=== PATIENT | female | born 1975 | race African-American/Black ===

== ENCOUNTER 2021-12-21 09:58 | Inpatient (IN) | payer OTHER, SELFPAY ==
[2021-12-21] VITALS (10 sets, daily range): BP systolic 125–150; BP diastolic 74–106; PULSE 93–111; RESP 16–20; TEMP 36.3–36.9; O2SAT 96–100; BMI 28.1
--- NOTE | ~2021-12-21 | XR_ITS ---
EXAMINATION: XR chest 2V DATE: 12/21/2021 10:32 INDICATION: Central chest pain. TECHNIQUE: Frontal and lateral views of the chest were obtained. COMPARISON: Chest 2 views 05/26/2011 FINDINGS: The chest demonstrates clear lungs without pneumonia, pleural effusion, or pneumothorax. Th e heart size is normal. IMPRESSION: 1. No acute cardiopulmonary disease. Reviewed, dictated and finalized at location A. R OPERATOR HOT METAL
--- NOTE | ~2021-12-21 | CT_ITS ---
EXAMINATION: CT soft tissue neck chest wo DATE: 12/21/2021 17:10 INDICATION: Dysphagia. Chest discomfort. Weight loss. TECHNIQUE: Computed tomography (CT) of the neck and chest was performed without intravenous contrast. Automated exposure control and iterative reconstruction technique were employed. The dose-length pro duct was 861.82 mGy-cm. COMPARISON: None FINDINGS: CT NECK: The pharynx and larynx are unremarkable. There are no pathologically enlarged lymph nodes. T here is mild cervical spondylosis. The paranasal sinuses are clear. The mastoid air cells are normal. CT CHEST: The lungs demonstrate mild dependent atelectasis. No pleural effusion. The heart size is no rmal. No pericardial effusion. There is mild thoracic spondylosis. IMPRESSION: 1. No etiology for the patient's symptoms. Reviewed, dictated and finalized at location A. DIATION CONSULTANT
--- NOTE | ~2021-12-21 | US_ITS ---
US renal BI 12/21/2021 14:41 Procedure: Realtime transabdominal ultrasound of the kidneys and bladder. Indication: Acute renal insufficiency Comparison: No prior studies for comparison. Findings: Renal echotexture is normal bilaterally without hydronephrosis, contour deforming mass or r enal calculus. The right kidney measures 10 cm and left kidney measures 9.9 cm. There are bilateral r enal cysts measuring up to 1.2 cm on the right and 1.1 cm on the left. Bladder within normal limits. Impression: 1: Bilateral renal cysts. Reviewed, dictated and finalized at location A. ATIENT PHARMACY MANAGER Impression: 1: Bilateral renal cysts.
--- NOTE | 2021-12-21 10:15 | ECG_ITS ---
Measurements Intervals [place] Rate: 103 P: 82 NH: 187 QRS: -47 QRSD: 84 T: 73 QT: 332 QTc: 436 Interpretive Statements SINUS TACHYCARDIA POSSIBLE LEFT ATRIAL ENLARGEMENT [-0.1mV P WAVE IN V1/V2] PATTERN CONSISTENT WITH PULMONARY DISEASE LEFT ANTERIOR FASCICULAR BLOCK [QRS AXIS <= -45, QR IN I, RS IN II] CANNOT RULE OUT SEPTAL MYOCARDIAL INFARCTION , OF INDETERMINATE AGE [40+ ms Q WAVE IN V1/V2] ABNORMAL ECG NO PREVIOUS ECG AVAILABLE FOR COMPARISON Electronically Signed On 12-21-2021 11:07:16 COKE CRANE OPERATOR by Dung Youssef M.D.
[2021-12-21] MEDS: ASPIRIN 81 MG CHEWABLE TABLET 324 MG PO (10:19)
[2021-12-21 10:29] LABS: Basophils Percent Auto 0.4 % (0.2-1.2); Eosinophils Percent Auto 0.2 % (0-4.4); Hematocrit 45.3 % (37.0-47.0); Hemoglobin 14.4 g/dL (12.0-15.0); Immature Granulocyte Absolute 0.02 K/mm3 (0.00-0.031); Immature Granulocyte Percent A 0.2 % (0-0.5); Lymphocytes Absolute Auto 1.14 K/mm3 (0.9-3.2); Lymphocytes Percent Auto 13.8 % (18.3-44.2); Mean Corpuscular HGB Conc 31.8 g/dl (32-36); Mean Corpuscular Hemoglobin 30.3 pg (26-34); Mean Corpuscular Volume 95.4 fl (80-100); Mean Platelet Volume 10.3 fl (7.4-10.4); Monocytes Absolute Auto 0.5 K/mm3 (0.1-0.6); Monocytes Percent Auto 6.5 % (2.6-8.5); Neutrophils Absolute Auto 6.5 K/mm3 (1.3-6.7); Neutrophils Percent Auto 78.9 % (45.5-73.1); Platelet Count Result 317 k/mm3 (150-375); Red Blood Count 4.75 M/mm3 (4.2-5.4); Red Cell Distribution Width 13.5 % (11.5-14.5); White Blood Count 8.3 K/mm3 (4.5-10.0)
[2021-12-21 10:38] LABS: Prothrombin Time 13.1 Seconds (11.1-14.7)
[2021-12-21 10:39] LABS: Partial Thromboplastin Time 26.9 SECONDS (22.3-36.8)
[2021-12-21 10:46] LABS: Albumin Level 4.9 g/dL (3.5-5.1); Alkaline Phosphatase 139 U/L (38-126); Aspartate Amino Transferase 33 U/L (14-36); Bilirubin,Total 0.9 mg/dL (0.2-1.3); Blood Urea Nitrogen 30 mg/dL (7-17); Calcium 10.4 mg/dL (8.4-10.2); Carbon Dioxide 25 mmol/L (22-30); Chloride 88 mmol/L (98-107); Estimated CRCL calculation 49 ml/min; Estimated Glomerular Filt Rate 49
--- NOTE | 2021-12-21 10:49 | ED.GENADULT ---
HPI - General Adult General Chief complaint: Unspecified Stated complaint: multiple complaints, [id number] Time Seen by Provider: 12/21/21 10:33 Source: patient Mode of arrival: ambulatory Limitations: no limitations History of Present Illness HPI narrative: Patient is 46 years old -[place] female presents to the ED with mid chest discomfort, extremely tired, intermittent vomiting, numbness of the chest on the arms, dry mouth decrease p.o. intake sour taste in the mouth when she tried to eat, lost at least 15 pounds since the beginning of the symptoms 1 month ago. Initially the symptom was intermittent, over the last 3 weeks has been constant. Patient works as a teacher, history of hypertension and depression. Patient denies any fever, chills, shortness of breath, abdominal pain, back pain. Patient does not smoke or drink or uses drugs. Related Data Allergies Allergy/AdvReac Type Severity Reaction Status Date / Time No Known Allergies Allergy Mild Unverified 09/14/08 18:38 Review of Systems Review of Systems: CONSTITUTIONAL: Denies fever, chills, or sweats. EYES: Denies visual changes, redness, or discharge. ENT: Denies rhinorrhea, congestion, sore throat, or otalgia. CARDIOVASCULAR: Denies chest pain, palpitations, or edema. RESPIRATORY: Denies cough or dyspnea. GASTROINTESTINAL: Denies abdominal pain, nausea, vomiting, or diarrhea. GENITOURINARY: Denies dysuria or hematuria. SKIN: Denies rash or itching. MUSCULOSKELETAL: Denies back pain, joint pain, or myalgia. NEUROLOGIC: Denies headache, numbness, or weakness. PSYCHIATRIC: Denies anxiety or depression. Exam Narrative: General appearance: Well-developed, well-nourished Skin: Normal color Head: Normocephalic, nontraumatic Eyes: Clear conjunctiva ENT: Oropharynx normal, ears normal, nose normal Neck: Supple, nontender Chest and respiratory: Airway patent, no respiratory distress, no accessory muscle use Heart: Regular rate/rhythm Abdomen: Soft, nontender, no organomegaly, quiet bowel sounds Vascular: Normal peripheral pulses, normal capillary refill. Musculoskeletal: Normal range of motion, nontender back Neurologic: Alert and oriented ?3, BLEACH RANGE OPERATOR is normal as tested, no gross motor deficit Course Course Emergency Course: Stable Vital Signs Vital signs: Vital Signs Temperature 36.9 C 12/21/21 10:09 Pulse Rate 108 H 12/21/21 10:09 Respiratory Rate 18 12/21/21 10:09 Blood Pressure 147/106 H 12/21/21 10:09 Pulse Oximetry 98 12/21/21 10:09 Temperature 36.9 C 12/21/21 10:09 Pulse Rate 109 H 12/21/21 10:20 Respiratory Rate 18 12/21/21 10:09 Blood Pressure 147/106 H 12/21/21 10:09 Pulse Oximetry 98 12/21/21 10:09 Medical Decision Making MDM Narrative Medical decision making narrative: Anxiety/depression is my concern. Differential Diagnosis Differential Diagnosis: Depression, anxiety-like symptoms, chest wall pain, pleurisy, Vital Signs Vital Signs: Vital Signs Temperature 36.9 C 12/21/21 10:09 Pulse Rate 108 H 12/21/21 10:09 Respiratory Rate 18 12/21/21 10:09 Blood Pressure 147/106 H 12/21/21 10:09 Pulse Oximetry 98 12/21/21 10:09 Temperature 36.9 C 12/21/21 10:09 Pulse Rate 109 H 12/21/21 10:20 Respiratory Rate 18 12/21/21 10:09 Blood Pressure 147/106 H 12/21/21 10:09 Pulse Oximetry 98 12/21/21 10:09 Lab Data Result diagrams: 12/21/21 10:23 12/21/21 10:23 Labs: Lab Results 12/21/21 12/21/21 12/21/21 Range/Units 10:23 10:23 10:23 WBC 8.3 (4.5-10.0) K/mm3 RBC 4.75 (4.2-5.4) M/mm3 Hgb 14.4 (12.0-15.0) g/dL Hct 45.3 (37.0-47.0) % MCV 95.4 (80-100) fl M
[2021-12-21 10:51] LABS: Troponin I < 0.012 ng/mL (0.000-0.034)
[2021-12-21 10:58] LABS: Alanine Aminotransferase 18 U/L (4-35); Anion Gap 18 mmol/L (8-16); Lipase 36 U/L (23-300); Sodium 131 mmol/L (137-145)
[2021-12-21 11:00] LABS: Glucose 801 mg/dL (65-110); Potassium 5.4 mmol/L (3.4-5.0)
[2021-12-21] MEDS: SODIUM CHLORIDE 0.9% IV 1,000 ML 999 ML IV CONT ×2 (11:05→12:13)
[2021-12-21 11:10] LABS: Fractional Inspired Oxygen 21 %; HCO3 VBG 24.6 mEq/l (24.0-30.0); PCO2 VBG 43.1 mmHg (42.0-48.0); pH VBG 7.374 (7.300-7.400)
[2021-12-21 11:16] LABS: Magnesium 2.6 mg/dL (1.6-2.3); Phosphorus 5.4 mg/dL (2.5-4.5)
[2021-12-21 11:20] LABS: Add Urine Microscopic? YES; Appearance Urine Clear (Clear); Bilirubin Urine Negative (Negative); Blood Urine Negative (Negative); Color Urine Straw (Yellow); Glucose Urine UA 3+ mg/dL (Negative); Ketones Urine 1+ mg/dL (Negative); Leukocyte Esterase Ur Negative LEU/UL (Negative); Nitrate Urine Negative (Negative); Protein Urine Negative (Negative); RBC Urine 0-2 /hpf (0-2); Specific Grav Ur 1.029 (1.001-1.035); Squamous Epithelial Cell Urine Rare /hpf (Few); Urobilinogen Urine Negative mg/dL (<2.0); WBC Urine 0-3 /hpf
[2021-12-21] MEDS: INSULIN HUMAN REGULAR (*BKC) 100 UNITS/ML 8 UNITS IV PUSH (11:21)
[2021-12-21 11:33] LABS: Thyroid Stimulating Hormone 0.854 uIU/mL (0.465-4.680)
[2021-12-21 11:37] LABS: Beta-Hydroxybutyrate/Acetoacetate 4.63 mmol/L (0.02-0.27)
[2021-12-21 11:39] LABS: Hemoglobin A1C > 14.0 % (<5.7)
--- NOTE | 2021-12-21 11:46 | WPDCNINT ---
Assessment and Plan Assessment and plan (1) DKA (diabetic ketoacidosis): Code(s): E11.10 - Type 2 diabetes mellitus with ketoacidosis without coma Status: Acute Assessment and Plan: Patient is getting 2 L normal saline IVF bolus and follow it with IV fluid infusion Insulin infusion and Q1H glucose monitoring Serial labs have been ordered monitor and replace electrolytes as needed Will transition to SC insulin once AG is closed consult clinical staff educator (2) VANESA (acute kidney injury): Code(s): N17.9 - Acute kidney failure, unspecified Status: Acute Assessment and Plan: likely secondary to dehydration and hypovolemia compounded by hydrochlorothiazide and spironolactone IV fluids monitor urine output creatinine electrolytes if does not improve or worsen will consult nephrology elevated phosphatase suggest some form of chronic kidney disease check CK level check renal ultrasound (3) Hyperkalemia: Code(s): E87.5 - Hyperkalemia Status: Acute Assessment and Plan: patient has received IV insulin and IV fluid bolus repeat BMP ordered (4) Hypertension: Code(s): I10 - Essential (primary) hypertension Status: Acute Assessment and Plan: continue Norvasc but hold hydrochlorothiazide and spironolactone add p.r.n. labetalol and hydralazine (5) Depression: Code(s): F32.A - Depression, unspecified Status: Acute Assessment and Plan: continue Wellbutrin (6) Chest discomfort: Code(s): R07.89 - Other chest pain Status: Acute Assessment and Plan: from history it appears noncardiac in nature but patient does have risk factors in the form of hypertension and new onset diabetes EKG reviewed check serial troponin will consider Cardiology consult depending on CT results and troponin levels (7) Dysphagia: Code(s): R13.10 - Dysphagia, unspecified Status: Acute Assessment and Plan: check CT noncontrast neck and chest to rule out any obstructive consult GI PPI for GERD (8) GERD (gastroesophageal reflux disease): Code(s): K21.9 - Gastro-esophageal reflux disease without esophagitis Status: Acute Assessment and Plan: PPI Additional Plan DVT prophylaxis - SCDs Stress ulcer prophylaxis - patient is on PPI for GERD Nutrition - clear liquid diet at this time Code Status - Full Code Total Critical Care Time - 30 minutes Due to a high probability of clinically significant, life threatening deterioration, the patient required my highest level of preparedness to intervene emergently and I personally spent this critical care time directly and personally managing the patient. This critical care time included obtaining a history; examining the patient; pulse oximetry; ordering and review of studies; arranging urgent treatment with development of a management plan; evaluation of patient's response to treatment; frequent reassessment; and discussions with other providers. It was exclusive of separately billable procedures and treating other patients and teaching time. Please see Assessment and Plan section and the rest of the note for further information on patient assessment and treatment Railroader Consult Note Consult date: 12/21/21 HPI: Ivonne Patel is a 46 year old female with past medical history of hypertension and depression who presented today with multiple complaints including chest discomfort, dry mouth, polyuria, weight loss, and numbness of hands. Patient states the symptoms started in October and had been getting worse. She saw primary care physician and was started on PPI for suspected GERD. Symptoms are not improved and have been getting worse hence she presented to ER today. She noticed increased thirst, increased urination, urine was not foul-smelling and no blood was noticed in it. Had some dysuria. her appetite was poor and she had weight loss. She reported that
[2021-12-21] MEDS: INSULIN HUMAN REGULAR (*BKC) 100 UNITS in SODIUM CHLORIDE 0.9% IV 99 ML 9.7 UNITS IV CONT (11:56)
[2021-12-21 11:59] LABS: Glucose Point of Care > 500 mg/dl (65-105)
[2021-12-21 12:53] LABS: Glucose Point of Care > 500 mg/dl (65-105)
--- NOTE | 2021-12-21 13:12 | ADMGEN ---
This patient, Ivonne Patel, was admitted to Intensive Care Unit-8. Patient/family oriented to hospital policies and general routines including ID bracelet, bed and alarms, visiting hours, pain management, procedures, bathroom and other care routines, personal items, smoking policy, room service/diet, and visiting hours. Information on how to activate the Rapid Response Team has been discussed. Patient/Family are encouraged to report perceived risks to care and to ask questions if they do not understand what they are told or what they should do.
[2021-12-21] MEDS: SODIUM CHLORIDE 0.9% IV 1,000 ML 150 ML IV CONT (13:20)
--- NOTE | 2021-12-21 13:55 | PM.IMHP ---
H&P: HPI History of Present Illness Date/Time: 12/21/21 13:55 Chief Complaint: Multiple complaints. Narrative: This is a pleasant 46-year-old female with hypertension, gastroesophageal reflux disease, depression, and anxiety who presented to the emergency department for evaluation of multiple complaints. She has not felt well for approximately 1 month with multiple symptoms to include fatigue, mid to low chest discomfort, indigestion, nausea with intermittent vomiting, dry mouth, and an unintentional 15 lb weight loss. She was recently prescribed pantoprazole and has been taking Tums for GERD symptoms though they have not provided her with much relief. Her mouth has been so dry that she is having difficulties swallowing but at time she feels as though food gets stuck in her throat and in her chest. She also endorses occasional dysuria and she has been dealing with a yeast infection for several weeks despite having taken 3 days of Diflucan. Pertinent labs drawn in the emergency department include a glucose of 801, BUN 30, creatinine 1.40, sodium 131, potassium 5.4, beta hydroxybutyrate 4.63, and an anion gap of 18. Urinalysis was positive for 3+ glucose and 1+ ketones. Venous blood gas demonstrated pH of 7.374, pCO2 43.1, and a bicarb of 24.6. Given her significant hyperglycemia she has been admitted to the ICU on insulin drip. At the time my evaluation she is feeling a lot better but she continues to be quite thirsty. She denies personal and family history of diabetes though she was told a couple of years ago that she was prediabetic. Review of Systems Review of Systems: Twelve systems were reviewed. No fever, chills, or sweats. No recent cold or flu symptoms. No sick contacts. Endorses occasional cramping in her legs. She has had some numbness and tingling in her feet, arms, and trunk which typically only occurs with vomiting. No lightheadedness or dizziness. No syncope or near syncope. She denies melena, hematochezia, and hematemesis. Except as documented, all other systems were reviewed and are negative. [facility] Past Medical History Medical History (Updated 12/21/21 @ 20:45 by Crystal Guevara PA-C) Anxiety COVID-19 Depression Gastroesophageal reflux disease Hypertension Pellucid marginal degeneration of both corneas Surgical History Surgical History (Updated 12/21/21 @ 14:00 by Crystal Guevara PA-C) History of hysterectomy Family History Family History Mother Hypertension Social History Social History (Updated 12/21/21 @ 20:46 by Crystal Guevara PA-C) Social History: Surrogate decision maker: Jere Mcrae, mother. Code status: Full code. Smoking status: Never smoker Alcohol intake: never Substance use: never Additional living arrangements comments: The patient lives in [place] with her 12-year-old son. 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 Meds Home Medications and Allergies Home Medications Medication Instructions Recorded Confirmed Type amlodipine 2.5 mg PO DAILY 12/21/21 12/21/21 History bupropion HCl 300 mg PO DAILY 12/21/21 12/21/21 History hydrochlorothiazide 25 mg PO DAILY 12/21/21 12/21/21 History pantoprazole 40 mg PO DAILY 12/21/21 12/21/21 History spironolactone 100 mg PO DAILY 12/21/21 12/21/21 History Allergies Allergy/AdvReac Type Severity Reaction Status Date / Time No Known Allergies Allergy Mild Unverified 09/14/08 18:38 Vital Signs Vital Signs - 24 hr 12/21/21 10:09 12/21/21 10:20 12/21/21 11:59 Temperature 98.4 F Pulse Rate 108 H 109 H 111 H Respiratory Rate 18 18 Blood Pressure 147/106 H 125/98 H Pulse Oximetry 98 100 12/21/21 13:14 12/21/21 13:15 Temperature 97.8 F Pulse Rate 111 H Respiratory Rate 20 Blood Pressure 150/98 H Pulse Oximetry 99 Exam Narrative: General: Well-developed female in the semi-Phillips
[2021-12-21 14:13] LABS: Glucose Point of Care 260 mg/dl (65-105)
[2021-12-21 14:25] LABS: Creatine Kinase 66 U/L (30-135)
[2021-12-21 14:26] LABS: Anion Gap 15 mmol/L (8-16); Blood Urea Nitrogen 26 mg/dL (7-17); Carbon Dioxide 25 mmol/L (22-30); Chloride 102 mmol/L (98-107); Estimated CRCL calculation 53 ml/min; Estimated Glomerular Filt Rate 53; Glucose 256 mg/dL (65-110); Potassium 3.8 mmol/L (3.4-5.0); Sodium 142 mmol/L (137-145)
[2021-12-21 14:38] LABS: Troponin I < 0.012 ng/mL (0.000-0.034)
[2021-12-21] MEDS: KCL 20 MEQ/D5/0.45% SOD CHL 1,000 ML 150 ML IV CONT (14:56)
[2021-12-21 15:00] LABS: Glucose Point of Care 180 mg/dl (65-105)
[2021-12-21 16:13] LABS: Glucose Point of Care 90 mg/dl (65-105)
[2021-12-21 16:53] LABS: Glucose Point of Care 86 mg/dl (65-105)
[2021-12-21 18:05] LABS: Glucose Point of Care 99 mg/dl (65-105)
[2021-12-21 18:29] LABS: Anion Gap 11 mmol/L (8-16); Blood Urea Nitrogen 27 mg/dL (7-17); Calcium 9.8 mg/dL (8.4-10.2); Carbon Dioxide 26 mmol/L (22-30); Chloride 105 mmol/L (98-107); Estimated CRCL calculation 57 ml/min; Estimated Glomerular Filt Rate 58; Glucose 119 mg/dL (65-110); Potassium 4.3 mmol/L (3.4-5.0); Sodium 142 mmol/L (137-145)
[2021-12-21 18:39] LABS: Troponin I < 0.012 ng/mL (0.000-0.034)
[2021-12-21] MEDS: SODIUM CHLORIDE 0.45% 1,000 ML 100 ML IV CONT (18:57)
[2021-12-21] MEDS: INSULIN GLARGINE (*BKC) 100 UNITS/ML 10 UNITS SUB-Q (18:58)
[2021-12-21 19:50] LABS: Glucose Point of Care 170 mg/dl (65-105)
[2021-12-21 22:22] LABS: Troponin I < 0.012 ng/mL (0.000-0.034)
[2021-12-21 23:14] LABS: Glucose Point of Care 280 mg/dl (65-105)
[2021-12-22] VITALS (17 sets, daily range): BP systolic 111–143; BP diastolic 78–92; PULSE 80–95; RESP 12–20; TEMP 36.2–37.6; O2SAT 96–100; BMI 28.1
[2021-12-22] MEDS: INSULIN ASPART (*BKC) 100 UNITS/ML SUB-Q ×4 (00:21→20:19)
[2021-12-22 03:40] LABS: Creatinine Urine 198.3 mg/dL; Sodium Urine Random 133 meq/L
[2021-12-22 03:45] LABS: Glucose Point of Care 219 mg/dl (65-105)
[2021-12-22] MEDS: ONDANSETRON INJ 4 MG/2 ML VIAL IV PUSH (04:18)
[2021-12-22] MEDS: SODIUM CHLORIDE 0.45% 1,000 ML 100 ML IV CONT (04:23)
[2021-12-22 04:47] LABS: Hematocrit 38.1 % (37.0-47.0); Hemoglobin 12.1 g/dL (12.0-15.0); Mean Corpuscular HGB Conc 31.8 g/dl (32-36); Mean Corpuscular Hemoglobin 30.1 pg (26-34); Mean Corpuscular Volume 94.8 fl (80-100); Mean Platelet Volume 10.3 fl (7.4-10.4); Platelet Count Result 256 k/mm3 (150-375); Red Blood Count 4.02 M/mm3 (4.2-5.4); Red Cell Distribution Width 13.4 % (11.5-14.5); White Blood Count 5.9 K/mm3 (4.5-10.0)
[2021-12-22 04:50] LABS: Alanine Aminotransferase 11 U/L (4-35); Albumin Level 3.6 g/dL (3.5-5.1); Alkaline Phosphatase 72 U/L (38-126); Anion Gap 5 mmol/L (8-16); Aspartate Amino Transferase 17 U/L (14-36); Bilirubin,Total 0.6 mg/dL (0.2-1.3); Blood Urea Nitrogen 21 mg/dL (7-17); Calcium 8.5 mg/dL (8.4-10.2); Carbon Dioxide 26 mmol/L (22-30); Chloride 103 mmol/L (98-107); Estimated CRCL calculation 62 ml/min; Estimated Glomerular Filt Rate > 60; Glucose 214 mg/dL (65-110); Magnesium 1.9 mg/dL (1.6-2.3); Phosphorus 2.3 mg/dL (2.5-4.5); Potassium 3.6 mmol/L (3.4-5.0); Sodium 134 mmol/L (137-145)
--- NOTE | 2021-12-22 08:08 | WPDINTPN ---
Progress Note: A&P Assessment and Plan (1) DKA (diabetic ketoacidosis): Code(s): E11.10 - Type 2 diabetes mellitus with ketoacidosis without coma Status: Acute Assessment and Plan: anion gap closed and patient has been transition to subcutaneous insulin advance diet today consulted staff educator (2) VANESA (acute kidney injury): Code(s): N17.9 - Acute kidney failure, unspecified Status: Acute Assessment and Plan: likely secondary to dehydration and hypovolemia compounded by hydrochlorothiazide and spironolactone IV fluids will be continued but or rate decreased monitor urine output creatinine electrolytes creatinine marginally improved 1.1 baseline creatinine unknown and it will not be surprising if patient has mild chronic kidney disease due to hypertension and diabetes CK level was normal Renal ultrasound showed bilateral renal cysts (3) Hyperkalemia: Code(s): E87.5 - Hyperkalemia Status: Acute Assessment and Plan: resolved after treatment. potassium level low this morning and replacement ordered (4) Hypertension: Code(s): I10 - Essential (primary) hypertension Status: Acute Assessment and Plan: continue Norvasc but continue to hold hydrochlorothiazide and spironolactone continuep.r.n. labetalol and hydralazine (5) Depression: Code(s): F32.A - Depression, unspecified Status: Acute Assessment and Plan: continue Wellbutrin (6) Chest discomfort: Code(s): R07.89 - Other chest pain Status: Acute Assessment and Plan: from history it appears noncardiac in nature but patient does have risk factors in the form of hypertension and new onset diabetes EKG reviewed negative serial troponin echo is pending (7) Dysphagia: Code(s): R13.10 - Dysphagia, unspecified Status: Acute Assessment and Plan: CT noncontrast neck and chest was unremarkable GI consult pending PPI for GERD (8) GERD (gastroesophageal reflux disease): Code(s): K21.9 - Gastro-esophageal reflux disease without esophagitis Status: Acute Assessment and Plan: PPI q.12 hours Additional Plan DVT prophylaxis - SCDs Stress ulcer prophylaxis - patient is on PPI for GERD. I will change it to q.12 hours Nutrition - diabetic diet Code Status - Full Code Incentive spirometry, up in chair. Transfer out ICU today Subjective Date/time seen: 12/22/21 08:08 Review of Systems Review of Systems: All systems reviewed & are unremarkable except as noted in HPI and below (HPI) Exam Narrative: General: Pt is alert awake and in NAD Lungs/Chest: Trachea central Clear BS B/L, No crackles or wheezing. Cardiac: RRR. Normal S1 S2. No murmurs Circulation: Pedal pulses are intact and symmetrical. Abdomen: Normal bowel sounds. obese. Soft. NT. ND. Extremities: No clubbing, cyanosis or edema. Warm : Glover in place Neurologic: Follows commands. Moves all 4 extremities PERRL Skin: No Rash HEENT: utilize slightly deviated no mass or other abnormality seen Objective Data Vital Signs Vital Signs: Vital Signs - 24 hr 12/21/21 10:09 12/21/21 10:20 12/21/21 11:59 Temperature 36.9 C Pulse Rate 108 H 109 H 111 H Respiratory Rate 18 18 Blood Pressure 147/106 H 125/98 H Pulse Oximetry 98 100 12/21/21 13:14 12/21/21 13:15 12/21/21 14:00 Temperature 36.6 C Pulse Rate 111 H 108 H Respiratory Rate 20 16 Blood Pressure 150/98 H 146/90 H Pulse Oximetry 99 99 12/21/21 16:00 12/21/21 18:00 12/21/21 20:00 Temperature 36.3 C L Pulse Rate 102 H 100 109 H Respiratory Rate 17 18 20 Blood Pressure 141/87 H 132/74 148/82 H Pulse Oximetry 98 98 99 12/21/21 22:00 12/22/21 00:00 12/22/21 02:00 Temperature 36.2 C L Pulse Rate 96 93 89 Respiratory Rate 18 19 18 Blood Pressure 138/82 128/83 122/80 Pulse Oximetry 96 99 96 12/22/21 04:00 12/22/21 06:00 Temperature 36.3 C L
[2021-12-22] MEDS: POTASSIUM PHOS,M-BASIC-D-BASIC 20 MMOL in SODIUM CHLORIDE 0.9% IV 250 ML 64.17 MMOL IVPB (08:15)
[2021-12-22] MEDS: POTASSIUM CHLORIDE 20 MEQ TABLET PO (08:15)
[2021-12-22] MEDS: amLODIPine BESYLATE 5 MG TABLET PO (08:15)
[2021-12-22] MEDS: buPROPion HCL XL (24 HR) 150 MG TABCR 300 MG PO (08:17)
[2021-12-22 08:26] LABS: Glucose Point of Care 133 mg/dl (65-105)
[2021-12-22] MEDS: PANTOPRAZOLE 40 MG TABLET PO ×2 (08:32→20:15)
[2021-12-22 12:17] LABS: Glucose Point of Care 161 mg/dl (65-105)
--- NOTE | 2021-12-22 12:51 | WPDGICN ---
Assessment and Plan Assessment and plan (1) Dysphagia: Code(s): R13.10 - Dysphagia, unspecified Status: Acute Assessment and Plan: To a stricture is a possibility although I would not expect her have difficulty with liquids as she does. I will schedule her for an EGD to be done today. (2) Diabetic ketoacidosis: Code(s): E11.10 - Type 2 diabetes mellitus with ketoacidosis without coma Status: Acute Assessment and Plan: Blood sugar was initially over 800 yesterday but now is in the normal range (3) Weight loss: Code(s): R63.4 - Abnormal weight loss Status: Acute Assessment and Plan: at least 15 lb she has lost a last month due to inability to eat and fear that food will get stuck. GI Consult Note Consult date/time: 12/22/21 12:51 HPI: Ivonne Patel is a 46 year old female with gastroesophageal reflux disease, depression, hypertension and anxiety who presented to the emergency department for evaluation of multiple complaints. She has not felt well for approximately 2 months with multiple symptoms to include fatigue, mid to low chest discomfort, indigestion, nausea with intermittent vomiting, dry mouth, and an unintentional 15 lb weight loss. She was recently prescribed pantoprazole and has been taking Tums for GERD symptoms though they have not provided her with much relief. Her mouth has been so dry that she is having difficulties swallowing but at time she feels as though food gets stuck in her throat and in her chest. she told the staff that it feels as though food is stuck in her chest. she states that she will feel as though something is moving up and down in her chest, in the esophagus, Even when she is laying down at night. Even liquids are difficult to get down liquids and food feel as though they stopped for a while the for the pass completely through. She does not however need to stop eating a meal completely although she has cut way back and consequently lost 15 lb. Review of Systems Review of Systems: All systems reviewed & are unremarkable except as noted in HPI and below PMFSH Past Medical History Medical History Anxiety COVID-19 Depression Gastroesophageal reflux disease Hypertension Pellucid marginal degeneration of both corneas Surgical History Surgical History History of hysterectomy Family History Family History Mother Hypertension Social History Social History Social History: Surrogate decision maker: Jere Mcrae, mother. Code status: Full code. Smoking status: Never smoker Alcohol intake: never Substance use: never Additional living arrangements comments: The patient lives in [place] with her 12-year-old son. 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 Spiritual care concerns: No Meds Home Medications and Allergies Home Medications Medication Instructions Recorded Confirmed Type amlodipine 2.5 mg PO DAILY 12/21/21 12/21/21 History bupropion HCl 300 mg PO DAILY 12/21/21 12/21/21 History hydrochlorothiazide 25 mg PO DAILY 12/21/21 12/21/21 History pantoprazole 40 mg PO DAILY 12/21/21 12/21/21 History spironolactone 100 mg PO DAILY 12/21/21 12/21/21 History Allergies Allergy/AdvReac Type Severity Reaction Status Date / Time No Known Allergies Allergy Mild Verified 12/22/21 13:06 Vital Signs Vital Signs - 24 hr 12/21/21 13:14 12/21/21 13:15 12/21/21 14:00 Temperature 36.6 C Pulse Rate 111 H 108 H Respiratory Rate 20 16 Blood Pressure 150/98 H 146/90 H Pulse Oximetry 99 99 12/21/21 16:00 12/21/21 18:00 12/21/21 20:00 Temperature 36.3 C L Pulse Rate 102 H 100 109 H Respiratory Rate 17 18 20 Blood Pressure 141/
--- NOTE | 2021-12-22 12:53 | PC.NURSE ---
To GI Lab per wheelchair, IV intact. Report given to Marlene RANKIN.
[2021-12-22] MEDS: LACTATED RINGERS 1,000 ML 150 ML IV CONT (13:05)
--- NOTE | 2021-12-22 13:06 | PC.NURSE ---
This patient, Ivonne Patel, was transferred GI lab and to 260 thereafter on 12/22/21 at 1306. Personal belongings sent with patient. Report given to CHUCHO Fink. Appropriate documentation sent with patient.
--- NOTE | 2021-12-22 13:23 | WPDANESEPPF ---
Anes - Initial Pre Proc Eval Procedure: Operation Date: 12/22/21 13:45 Proposed Procedures p Esophagogastroduodenoscopy - Raymond Mckenzie MD Date/Time: 12/22/21 13:23 Surgeon: Reyes Mcbride MD Pre Op Diagnosis: Hyperosmolar/hyperglycemic/ nonketotic syndrome Patient Data Age: 46 Gender: F Height: 1.7 m Weight: 81.6 kg Last Vital Signs Temp 37.6 C H 12/22/21 13:07 Pulse 88 12/22/21 13:07 Resp 20 12/22/21 13:07 BP 130/83 12/22/21 13:07 Pulse Ox 100 12/22/21 13:07 Allergies Allergy/AdvReac Type Severity Reaction Status Date / Time No Known Allergies Allergy Mild Verified 12/22/21 13:06 Home Medications Medication Instructions Recorded Confirmed Type amlodipine 2.5 mg PO DAILY 12/21/21 12/21/21 History bupropion HCl 300 mg PO DAILY 12/21/21 12/21/21 History hydrochlorothiazide 25 mg PO DAILY 12/21/21 12/21/21 History pantoprazole 40 mg PO DAILY 12/21/21 12/21/21 History spironolactone 100 mg PO DAILY 12/21/21 12/21/21 History Laboratory Tests 12/21/21 12/21/21 12/21/21 13:54 14:11 14:11 WBC RBC Hgb Hct MCV MCH MCHC RDW Plt Count MPV Sodium 142 mmol/L mmol/L (137-145) Potassium 3.8 mmol/L mmol/L (3.4-5.0) Chloride 102 mmol/L mmol/L (98-107) Carbon Dioxide 25 mmol/L mmol/L (22-30) Anion Gap 15 mmol/L mmol/L (8-16) BUN 26 mg/dL H mg/dL (7-17) Creatinine 1.30 mg/dL H mg/dL (0.7-1.0) Estim Creat Clear Calc 53 ml/min ml/min Estimated GFR 53 L (59 - ) Glucose 256 mg/dL H mg/dL (65-110) POC Capillary Glucose 260 mg/dl H mg/dl (65-105) Calcium 10.0 mg/dL mg/dL (8.4-10.2) Phosphorus Magnesium Total Bilirubin AST ALT Alkaline Phosphatase Total Creatine Kinase Troponin I < 0.012 ng/mL ng/mL (0.000-0.034) Total Protein Albumin Ur Random Sodium Urine Creatinine 12/21/21 12/21/21 12/21/21 14:11 14:54 16:01 WBC RBC Hgb Hct MCV MCH MCHC RDW Plt Count MPV Sodium Potassium Chloride Carbon Dioxide Anion Gap BUN Creatinine Estim Creat Clear Calc Estimated GFR Glucose POC Capillary Glucose 180 mg/dl H mg/dl 90 mg/dl mg/dl (65-105) (65-105) Calcium Phosphorus Magnesium Total Bilirubin AST ALT Alkaline Phosphatase Total Creatine Kinase 66 U/L U/L (30-135) Troponin I Total Protein Albumin Ur Random Sodium Urine Creatinine 12/21/21 12/21/21 12/21/21 16:49 17:57 18:09 WBC RBC Hgb Hct MCV MCH MCHC RDW Plt Count MPV Sodium Potassium Chloride Carbon Dioxide Anion Gap BUN Creatinine Estim Creat Clear Calc Estimated GFR Glucose POC Capillary Glucose 86 mg/dl mg/dl 99 mg/dl mg/dl (65-105) (65-105) Calcium Phosphorus Magnesium Total Bilirubin AST ALT Alkaline Phosphatase Total Creatine Kinase Troponin I < 0.012 ng/mL ng/mL (0.000-0.034) Total Protein Albumin Ur Random Sodium
--- NOTE | 2021-12-22 13:30 | PCCDE ---
Consult received 12/21; pt admitted 12/21 with [facility]. Attempted to see but pt was at the GI lab. Will follow and attempt tomorrow.
[2021-12-22 14:01] LABS: Glucose Point of Care 135 mg/dl (65-105)
--- NOTE | 2021-12-22 14:17 | ECHO_ITS ---
Patient Info Name: Ivonne Patel Age: 46 years : 1975 Gender: Female Ht: 67 in Wt: 179 lbs BSA: 1.98 m2 HR: 82 bpm BP: 111 / 78 mmHg Heart Rhythm: Sinus Rhythm Technical Quality: Fair Exam Date: 12/22/2021 7:53 AM Exam Location: [facility] Patient Status: Inpatient Admit Date: 12/22/2021 Staff Ordering Physician: Crystal Guevara PA-C [employer] Placer: Milana Mejia RDCS Attending Provider: Reyes Mcbride MD Referring Physician: Ismael GONZALEZ; Exam Type: CA echo doppler color flow Study Info Indications - chest discomfort, abnormal ekg Complete two-dimensional, color flow and Doppler transthoracic echocardiogram is performed. Summary 1. Complete two-dimensional, color flow and Doppler transthoracic echocardiogram is performed. 2. Left ventricular chamber dimension is normal. 3. Left ventricular systolic function is normal, estimated at 60-65%. 4. The left ventricular diastolic function is normal. 5. E/e' 7 is not elevated. 6. No pulmonary hypertension, estimated pulmonary arterial systolic pressure is 28 mmHg. Left Ventricle E/e' 7 is not elevated. Left ventricular chamber dimension is normal. Left ventricular systolic function is normal, estimated at 60-65%. The left ventricular diastolic function is normal. Right Ventricle Right ventricular systolic function is normal and with normal TAPSE 1.9 cm. Right ventricular chamber dimension is normal. Left Atria Left atrial chamber dimension is normal. Right Atria Right atrial chamber dimension is normal. Aortic Valve The aortic valve is trileaflet. There is no aortic valve stenosis. There is no aortic valve regurgitation. Pulmonic Valve There is no pulmonic regurgitation. Mitral Valve There is no mitral valve stenosis. There is no mitral valve regurgitation. Tricuspid Valve There is no tricuspid valve regurgitation. No pulmonary hypertension, estimated pulmonary arterial systolic pressure is 28 mmHg. Pericardium/Pleural There is no pericardial effusion. Inferior Vena Cava Normal inferior vena cava with >50% collapse upon inspiration consistent with normal right atrial pressure, 5 mmHg. Aorta The aortic root size at the sinus of Valsalva is normal. Left Ventricular Outflow Tract Name Value Normal LVOT 2D LVOT Diameter 2.0 cm LVOT Doppler LVOT Peak Gradient 3 mmHg LVOT Mean Gradient 2 mmHg LVOT VTI 15 cm LVOT VTI/AV VTI Ratio 0.7 LVOT Stroke Volume 49 ml LVOT CO 3.9 l/min LVOT CI 2.0 l/min/m2 Pulmonic Valve Name Value Normal PV Doppler PV Peak Gradient 3 mmHg Mitral Valve
--- NOTE | 2021-12-22 14:33 | PM.IMPN ---
Progress Note: A&P Additional Plan 46-year-old female with hypertension, gastroesophageal reflux disease, depression, and anxiety who presented to the emergency department for evaluation of multiple complaints. Was found to be in DAK along with VANESA and GI symptoms. 1)Diabetic Ketoacidosis: New diagnosis of diabetes mellitus DKA has resolved AG has closed Transitioned to Sub Q insulin HBA1C>14, will need insulin upon discharge BG check TID AC Increase lantus to 15 units c/w SS insulin meal time Add scheduled meal time insulin as well Adjust dose as needed 2)VANESA: Likely with DKA Improving kidney function Avoid nephrotoxins Recheck BMP in AM 3)Dysphagia: Appreciate GI help S/p EGD today EGD shows gastritis and non erosive reflux disease Started on diet c/w PPI BID 4)HTN: Increase dose of Norvasc Add low dose metoprolol(slight tachycardia+) 5)DVT ppx: Hep SQ 6)Code:Full 7)Dispo:pending improvement Time Spent With Patient Time with patient: 25 - 35 minutes Subjective Date/time seen: 12/22/21 14:33 Interval history: s/p EGD today Transferred out of ICU, no complaints, resting comfortably Review of Systems Review of Systems: All systems reviewed & are unremarkable except as noted in HPI and below Constitutional: Constitutional: Reports no additional constitutional complaints ENT: Reports system reviewed and no additional complaints, except as documented Cardiovascular: Cardiovascular: Reports as per HPI and Reports no additional cardiovascular complaints Respiratory: Respiratory: Reports as per HPI and Reports no additional respiratory complaints Gastrointestinal: Gastrointestinal: Reports as per HPI and Reports no additional gastrointestinal complaints Musculoskeletal: Musculoskeletal: Reports no additional musculoskeletal complaints Neurologic: Reports system reviewed and no additional complaints, except as documented Endocrine: Endocrine: Reports no additional endocrine complaints Hematologic/Lymphatic: Hematologic/Lymphatic: Reports no additional hematologic/lymphatic complaints Allergic/Immunologic: Allergic/Immunologic: Reports no additional allergic/immunologic complaints Exam Const: General: no acute distress HENMT: Mouth: Yes moist mucous membranes Eyes: General: appearance normal, both eyes and all related structures Pupils: Equal, round and reactive pupils present Neck: Neck: supple Resp: Effort & Inspection: normal respiratory effort Auscultation: clear to auscultation bilaterally Cardio: Rate: regular rate Rhythm: regular rhythm GI: GI Palp: Yes Soft to palpation and Yes Guarding due to palpation present (GI) Auscultation: normal bowel sounds Skin: General skin exam: normal color Neuro: Cognition (Neuro): normal cognition Speech: normal speech Psych: Mental Status: mental status grossly normal Affect: normal affect Objective Data Vital Signs Vital Signs: Vital Signs - 24 hr 12/21/21 16:00 12/21/21 18:00 12/21/21 20:00 Temperature 97.4 F L Pulse Rate 102 H 100 109 H Respiratory Rate 17 18 20 Blood Pressure 141/87 H 132/74 148/82 H Pulse Oximetry 98 98 99 12/21/21 22:00 12/22/21 00:00 12/22/21 02:00 Temperature 97.1 F L Pulse Rate 96 93 89 Respiratory Rate 18 19 18 Blood Pressure 138/82 128/83 122/80 Pulse Oximetry 96 99 96 12/22/21 04:00 12/22/21 06:00 12/22/21 08:00 Temperature 97.3 F L 97.7 F Pulse Rate 87 83 80 Respiratory Rate 12 15 16 Blood Pressure 128/88 111/78 121/80 Pulse Oximetry 99 96 96 12/22/21 12:00 12/22/21 13:07 12/22/21 13:38 Temperature 97.9 F 99.7 F H Pulse Rate 89 88 87 Respiratory Rate 14 20 15 Blood Pressure 117/85 130/83 121/84 Pulse Oximetry 100 100 100 12/22/21 13:48 12/22/21 13:58 Temperature Pulse Rate 87 95 Respiratory Rate 17 18 Blood Pressure 127/85 140/92 H Pulse Oximetry 100 100 Intake/Output Intake/Output: Intake & Output 12/19/21 12/20/21 12/21/21 12/22/21 23:59 23:59 2
--- NOTE | 2021-12-22 15:11 | SUR.PHASEII ---
H. Pylori test negative. Taken at 1333 and read at 1433.
[2021-12-22] MEDS: CALCIUM CARBONATE (TUMS) 500 MG (200 MG ELEMENTAL) PO (16:30)
[2021-12-22 17:07] LABS: Glucose Point of Care 157 mg/dl (65-105)
[2021-12-22] MEDS: SODIUM CHLORIDE 0.45% 1,000 ML 50 ML IV CONT (17:37)
[2021-12-22 20:09] LABS: Glucose Point of Care 256 mg/dl (65-105)
[2021-12-22] MEDS: METOPROLOL TARTRATE 12.5 MG TABLET PO (20:13)
[2021-12-22] MEDS: HEPARIN SODIUM 5,000 UNITS/ML VIAL 5000 UNITS SUB-Q (20:14)
[2021-12-22] MEDS: INSULIN GLARGINE (*BKC) 100 UNITS/ML 15 UNITS SUB-Q (20:15)
[2021-12-22 23:57] LABS: Glucose Point of Care 84 mg/dl (65-105)
[2021-12-23] VITALS (12 sets, daily range): BP systolic 100–132; BP diastolic 56–84; PULSE 72–90; RESP 16–20; TEMP 35.8–36.9; O2SAT 98–100
[2021-12-23 03:48] LABS: Glucose Point of Care 121 mg/dl (65-105)
[2021-12-23 05:51] LABS: Hematocrit 37.6 % (37.0-47.0); Hemoglobin 11.7 g/dL (12.0-15.0); Mean Corpuscular HGB Conc 31.1 g/dl (32-36); Mean Corpuscular Hemoglobin 29.7 pg (26-34); Mean Corpuscular Volume 95.4 fl (80-100); Platelet Count Result 234 k/mm3 (150-375); Red Blood Count 3.94 M/mm3 (4.2-5.4); Red Cell Distribution Width 13.3 % (11.5-14.5); White Blood Count 4.5 K/mm3 (4.5-10.0)
[2021-12-23 06:19] LABS: Alanine Aminotransferase 10 U/L (4-35); Albumin Level 3.2 g/dL (3.5-5.1); Alkaline Phosphatase 63 U/L (38-126); Anion Gap 5 mmol/L (8-16); Aspartate Amino Transferase 19 U/L (14-36); Bilirubin,Total 0.3 mg/dL (0.2-1.3); Blood Urea Nitrogen 10 mg/dL (7-17); Calcium 7.9 mg/dL (8.4-10.2); Carbon Dioxide 23 mmol/L (22-30); Chloride 104 mmol/L (98-107); Estimated CRCL calculation 75 ml/min; Estimated Glomerular Filt Rate > 60; Glucose 118 mg/dL (65-110); Magnesium 1.9 mg/dL (1.6-2.3); Phosphorus 3.1 mg/dL (2.5-4.5); Potassium 3.6 mmol/L (3.4-5.0); Sodium 132 mmol/L (137-145)
--- NOTE | 2021-12-23 07:23 | PC.NURSE ---
Outpatient referral started for Initial DSMT and MNT. [facility].
[2021-12-23 07:43] LABS: Glucose Point of Care 113 mg/dl (65-105)
[2021-12-23] MEDS: METOPROLOL TARTRATE 12.5 MG TABLET PO ×2 (09:13→20:38)
[2021-12-23] MEDS: PANTOPRAZOLE 40 MG TABLET PO ×2 (09:13→20:38)
[2021-12-23] MEDS: buPROPion HCL XL (24 HR) 150 MG TABCR 300 MG PO (09:14)
[2021-12-23] MEDS: amLODIPine BESYLATE 5 MG TABLET 10 MG PO (09:15)
[2021-12-23] MEDS: HEPARIN SODIUM 5,000 UNITS/ML VIAL 5000 UNITS SUB-Q ×2 (09:16→20:37)
[2021-12-23] MEDS: INSULIN ASPART (*BKC) 100 UNITS/ML SUB-Q ×5 (09:17→17:29)
[2021-12-23 13:53] LABS: Glucose Point of Care 326 mg/dl (65-105)
--- NOTE | 2021-12-23 15:38 | PM.IMPN ---
Progress Note: A&P Additional Plan 46-year-old female with hypertension, gastroesophageal reflux disease, depression, and anxiety who presented to the emergency department for evaluation of multiple complaints. Was found to be in DKA along with VANESA and GI symptoms. 1)Diabetic Ketoacidosis: New diagnosis of diabetes mellitus DKA has resolved AG has closed Transitioned to Sub Q insulin HBA1C>14, will need insulin upon discharge BG check TID AC c/w lantus to 15 units c/w SS insulin meal time c/w scheduled meal time insulin as well Adjust dose as needed 2)VANESA: Likely with DKA Improved Avoid nephrotoxins 3)Dysphagia: Appreciate GI help S/p EGD EGD shows gastritis and non erosive reflux disease Started on diet c/w PPI BID 4)HTN: c/w norvasc, metoprolol 5)DVT ppx: Hep SQ 6)Code:Full 7)Dispo:plan for discharge in morning Time Spent With Patient Time with patient: 25 - 35 minutes Subjective Date/time seen: 12/23/21 15:38 Interval history: no acute events overnight, resting comfortably Was over whelmed with diabetes related education, therefore wanted to stay one more night Review of Systems Review of Systems: All systems reviewed & are unremarkable except as noted in HPI and below Constitutional: Constitutional: Reports no additional constitutional complaints ENT: Reports system reviewed and no additional complaints, except as documented Cardiovascular: Cardiovascular: Reports no additional cardiovascular complaints Gastrointestinal: Gastrointestinal: Reports no additional gastrointestinal complaints Neurologic: Reports system reviewed and no additional complaints, except as documented Hematologic/Lymphatic: Hematologic/Lymphatic: Reports no additional hematologic/lymphatic complaints Allergic/Immunologic: Allergic/Immunologic: Reports no additional allergic/immunologic complaints Exam Const: General: cooperative, comfortable and no acute distress HENMT: Mouth: Yes Abnormal oral and palatal mucosa present Eyes: Pupils: Equal, round and reactive pupils present Neck: Neck: supple Resp: Auscultation: clear to auscultation bilaterally Cardio: Rate: regular rate Rhythm: regular rhythm GI: GI Palp: Yes Soft to palpation Auscultation: normal bowel sounds Skin: General skin exam: normal color Neuro: Cognition (Neuro): normal cognition Psych: Mental Status: mental status grossly normal Objective Data Vital Signs Vital Signs: Vital Signs - 24 hr 12/22/21 16:00 12/22/21 18:00 12/22/21 20:01 Temperature 97.8 F Pulse Rate 90 88 93 Respiratory Rate 18 Blood Pressure 140/86 Pulse Oximetry 96 12/22/21 20:13 12/22/21 20:19 12/22/21 23:12 Temperature 97.8 F Pulse Rate 90 92 Respiratory Rate 18 17 Blood Pressure 137/88 Pulse Oximetry 98 100 12/23/21 00:14 12/23/21 02:58 12/23/21 03:19 Temperature 98.4 F Pulse Rate 73 74 Respiratory Rate 18 Blood Pressure 130/78 Pulse Oximetry 98 100 12/23/21 04:01 12/23/21 07:05 12/23/21 10:29 Temperature 98.2 F 97.2 F L Pulse Rate 75 90 77 Respiratory Rate 18 20 Blood Pressure 132/84 124/73 Pulse Oximetry 100 100 12/23/21 14:14 Temperature 97.3 F L Pulse Rate 78 Respiratory Rate 18 Blood Pressure 103/60 Pulse Oximetry 99 Intake/Output Intake/Output: Intake & Output 12/20/21 12/21/21 12/22/21 12/23/21 23:59 23:59 23:59 23:59 Intake Total 1000 3631.6667 340 Output Total 179 711 6801 Balance 550 2806.6667 -860 Meds/Results Medications: Active Medications Generic Name Dose Route Start Last Admin Trade Name Yuliet PRN Reason Stop Dose Admin Amlodipine Besylate 10 mg 12/23/21 09:00 12/23/21 09:15 Amlodipine Besylate 5 Mg Tablet PO 10 mg QAM DOE Administration Bupropion HCl 300 mg 12/22/21 09:00 12/23/21 09:14 Bupropion Hcl Xl (24 Hr) 150 Mg Tabcr PO 300 mg QAM DOE Administration Calcium Carbonate 200 mg 12/22/21 16:25 12/22/21 16:30 Calcium Carbonate (Duc
[2021-12-23 16:40] LABS: Glucose Point of Care 223 mg/dl (65-105)
[2021-12-23 19:47] LABS: Glucose Point of Care 149 mg/dl (65-105)
[2021-12-23] MEDS: INSULIN GLARGINE (*BKC) 100 UNITS/ML 15 UNITS SUB-Q (20:42)
[2021-12-23 23:31] LABS: Glucose Point of Care 96 mg/dl (65-105)
[2021-12-24 03:55] VITALS: BP 104/61; PULSE 76; RESP 16; TEMP 36.1; O2SAT 100
[2021-12-24 04:01] LABS: Glucose Point of Care 97 mg/dl (65-105)
[2021-12-24 06:50] LABS: Glucose Point of Care 96 mg/dl (65-105)
[2021-12-24 07:59] LABS: Glucose Point of Care 116 mg/dl (65-105)
[2021-12-24] MEDS: PANTOPRAZOLE 40 MG TABLET PO (09:19)
[2021-12-24] MEDS: METOPROLOL TARTRATE 12.5 MG TABLET PO (09:19)
[2021-12-24] MEDS: amLODIPine BESYLATE 5 MG TABLET 10 MG PO (09:19)
[2021-12-24] MEDS: HEPARIN SODIUM 5,000 UNITS/ML VIAL 5000 UNITS SUB-Q (09:19)
[2021-12-24] MEDS: buPROPion HCL XL (24 HR) 150 MG TABCR 300 MG PO (09:19)
[2021-12-24] MEDS: INSULIN ASPART (*BKC) 100 UNITS/ML SUB-Q ×4 (09:20→16:55)
[2021-12-24 09:24] VITALS: BP 119/68; PULSE 87; RESP 16; TEMP 36.3; O2SAT 99
[2021-12-24 12:00] LABS: Glucose Point of Care 194 mg/dl (65-105)
[2021-12-24 14:36] VITALS: BP 99/63; PULSE 84; RESP 18; TEMP 36.7; O2SAT 100
--- NOTE | 2021-12-24 15:00 | PM.DS ---
DS: Admitting Diagnosis Discharge Date 12/24/2021 Admitting Diagnosis DKA DS: Discharge Diagnosis Discharge Diagnosis (1) DKA (diabetic ketoacidosis): Code(s): E11.10 - Type 2 diabetes mellitus with ketoacidosis without coma Status: Acute Assessment and Plan: presented with DKA. Was admitted in the ICU and treated with insulin protocol for DKA. anion gap closed and patient has been transition to subcutaneous insulin Diet advance. clinical trial educator consulted. Educated for diabetes and insulin management at home Accu-Chek monitoring and insulin adjustment as an outpatient basis Follow-up with PCP in 1 week for further titration of medication A1c came back at more than 14 (2) VANESA (acute kidney injury): Code(s): N17.9 - Acute kidney failure, unspecified Status: Acute Assessment and Plan: likely secondary to dehydration and hypovolemia compounded by hydrochlorothiazide and spironolactone Treated with IV fluids in the ICU baseline creatinine unknown and it will not be surprising if patient has mild chronic kidney disease due to hypertension and diabetes CK level was normal Renal ultrasound showed bilateral renal cysts (3) Hyperkalemia: Code(s): E87.5 - Hyperkalemia Status: Acute Assessment and Plan: resolved after treatment. (4) Hypertension: Code(s): I10 - Essential (primary) hypertension Status: Acute Assessment and Plan: continue Norvasc but continue to hold hydrochlorothiazide and spironolactone continuep.r.n. labetalol and hydralazine Mild tachycardia ends added metoprolol during the hospital stay will discharge on metoprolol 12.5 mg b.i.d. (5) Depression: Code(s): F32.A - Depression, unspecified Status: Acute Assessment and Plan: continue Wellbutrin (6) Chest discomfort: Code(s): R07.89 - Other chest pain Status: Acute Assessment and Plan: from history it appears noncardiac in nature but patient does have risk factors in the form of hypertension and new onset diabetes EKG reviewed negative serial troponin echo reviewed 12/22/21 normal EF at 60-65% normal diastolic function no pulmonary hypertension no significant valvular dysfunction (7) Dysphagia: Code(s): R13.10 - Dysphagia, unspecified Status: Acute Assessment and Plan: CT noncontrast neck and chest was unremarkable consulted GI underwent EGD which showed nonerosive gastritis PPI for GERD Tolerating diet (8) GERD (gastroesophageal reflux disease): Code(s): K21.9 - Gastro-esophageal reflux disease without esophagitis Status: Acute Assessment and Plan: PPI q.12 hours DS: Summary Hospital Course Hospital Course: see above Time Spent with Patient Time attestation: Total time spent providing and/or coordinating discharge services: 40 minutes Exam Narrative: General: Pt is alert awake and in NAD Lungs/Chest: Trachea central Clear BS B/L, No crackles or wheezing. Cardiac: RRR. Normal S1 S2. No murmurs Circulation: Pedal pulses are intact and symmetrical. Abdomen: Normal bowel sounds. obese. Soft. NT. ND. Extremities: No clubbing, cyanosis or edema. Warm : Glover in place Neurologic: Follows commands. Moves all 4 extremities PERRL Skin: No Rash HEENT: utilize slightly deviated no mass or other abnormality seen DS: Data Data Completed and Pending Completed studies during hospitalization: Pending at discharge 12/22/21 13:38 Surgical [PTH] Routine Exam Type: CA echo doppler color flow Study Info Indications - chest discomfort, abnormal ekg Complete two-dimensional, color flow and Doppler transthoracic echocardiogram is performed. Summary 1. Complete two-dimensional, color flow and Doppler transthoracic echocardiogram is performed. 2. Left ventricular chamber dimension is normal. 3. Left ventricular systolic func
[2021-12-24 16:07] VITALS: O2SAT 98
[2021-12-24 16:52] LABS: Glucose Point of Care 278 mg/dl (65-105)
== END 2021-12-24 18:23 | disposition home or self-care (01) | DRG 638 ==
LOC: ANHED 10:55 → ANHICU 13:14 → ANH2MED 12-22 14:00 → ANH3MED 12-23 12:07
PROVIDERS: Internal Medicine; Internal Medicine Gastroenterology; Admitting Provider Family Medicine; Emergency Provider Emergency Medicine; PCP Internal Medicine; Visit Provider Internal Medicine
PROC: 0DJ08ZZ Inspection of Upper Intestinal Tract, Via Natural or Artificial Opening Endoscopic (ICD-10-PCS; CPT 43235; principal; 2021-12-22 13:45)
DX: E11.10 Type 2 diabetes mellitus with ketoacidosis without coma (principal); N17.9 Acute kidney failure, unspecified; Z86.16 Personal history of COVID-19; I10 Essential (primary) hypertension; E86.0 Dehydration; E87.5 Hyperkalemia; F32.9 Major depressive disorder, single episode, unspecified; R07.89 Other chest pain; R11.0 Nausea; R13.10 Dysphagia, unspecified; K21.9 Gastro-esophageal reflux disease without esophagitis; Z82.49 Family history of ischemic heart disease and other diseases of the circulatory system; G47.62 Sleep related leg cramps; F41.9 Anxiety disorder, unspecified; E86.1 Hypovolemia; Z79.899 Other long term (current) drug therapy; R63.4 Abnormal weight loss; T50.2X5A Adverse effect of carbonic-anhydrase inhibitors, benzothiadiazides and other diuretics, initial encounter; K29.70 Gastritis, unspecified, without bleeding
CPT/HCPCS: 36415; 70490; 71046; 71250; 76775; 80048; 80053; 81001; 82010; 82550; 82570; 82803; 82948; 83036; 83690; 83735; 84100; 84300; 84443; 84484; 85025; 85027; 85610; 85730; 87081; 88305; 88313; 93005; 93306; 96361; 96365; 96366; 96375; 96376; 99285; A9270; G0378; J0131; J1644; J1815; J2405; J2704; J3480; J7030; J7050; J7120